=== PATIENT | male | born 1970 | race Caucasian/White ===

== ENCOUNTER 2018-03-21 12:36 | Emergency (ER) | payer SELFPAY ==
[~2018-03-21] VITALS: Ht 175.3 cm; Wt 87.3 kg
[2018-03-21 12:39] VITALS: BP 152/103
== END 2018-03-21 15:02 | disposition left against medical advice (07) ==
LOC: ED 14:56
DX: F10.10 Alcohol abuse, uncomplicated (principal); Z53.21 Procedure and treatment not carried out due to patient leaving prior to being seen by health care provider